=== PATIENT | female | born 1980 | race Two or more races ===

== ENCOUNTER 2019-07-05 13:08 | Emergency (ER) | payer SELFPAY ==
[~2019-07-05] VITALS: Ht 162.6 cm; Wt 65.0 kg
[~2019-07-05 13:08] MED LIST: DOXY100T27 PO; IBUP200T44 PO; OXYC1TAB15 PO; PNV1TABL25 PO; methergine PO
[2019-07-05 13:30] VITALS: BP 133/75
[2019-07-05] MEDS ORDERED: IV NORMAL SALINE 1000ML BAG 1,000 ML IV ONE (13:45)
[2019-07-05 13:50] LABS: BILIRUBIN,URINE NEGATIVE (NEG); CLARITY,URINE CLOUDY; COLOR,URINE YELLOW; NITRITE,URINE NEGATIVE (NEG); PH,URINE 6.5; PROTEIN,URINE NEGATIVE (NEG-TRACE)
[2019-07-05 13:53] LABS: BASO % 0 % (0-3); EOS # 0.1 x10^3/uL (0.0-0.7); EOS % 2 % (0-3); HEMATOCRIT 40.9 % (36.0-47.0); HEMOGLOBIN 13.7 g/dL (12.0-15.5); LYMPH # 1.2 x10^3/uL (1.0-4.8); LYMPH % 17 % (24-48); MEAN CORPUSCULAR HEMOGLOBIN 30 pg (25-35); MEAN CORPUSCULAR HGB CONC 34 g/dL (31-37); MEAN CORPUSCULAR VOLUME 88 fL (79-100); MONO # 0.4 x10^3/uL (0.0-1.1); MONO % 7 % (0-9); NEUT # 5.1 x10^3/uL (1.8-7.7); NEUT % 75 % (31-73); PLATELET COUNT 221 x10^3/uL (140-400); RED BLOOD COUNT 4.67 x10^6/uL (3.50-5.40); RED CELL DISTRIBUTION WIDTH 14.8 % (11.5-14.5); WHITE BLOOD COUNT 6.8 x10^3/uL (4.0-11.0)
--- NOTE | 2019-07-05 13:58 | PHYS DOC ---
Adult General Chief Complaint Chief Complaint: VAGINAL BLEEDING [facility] HPI Patient is a 38 year old female who presents with vaginal bleeding, lower abdominal pain has been ongoing for several days. The patient also states that yesterday she had blood in her urine. She states her last menstrual period was distal fifth, that she is currently 8-9 weeks . The patient is [id number]. She rates her pain as 7/10 in severity. [employer] # [id number] ([place]) Review of Systems Review of Systems Constitutional: Denies fever or chills [] Eyes: Denies change in visual acuity, redness, or eye pain [] HENT: Denies nasal congestion or sore throat [] Respiratory: Denies cough or shortness of breath [] Cardiovascular: No additional information not addressed in HPI [] GI: Reports abdominal pain, denies nausea, vomiting, bloody stools or diarrhea [] : Denies dysuria or hematuria [] Musculoskeletal: Denies back pain or joint pain [] Integument: Denies rash or skin lesions [] Neurologic: Denies headache, focal weakness or sensory changes [] Endocrine: Denies polyuria or polydipsia [] Complete systems were reviewed and found to be within normal limits, except as documented in this note. Current Medications Current Medications Current Medications Medications (Trade) Dose Ordered Sig/Robel Start Time Stop Time Status Last Admin Dose Admin Sodium Chloride 1,000 ml @ 1,000 mls/hr 1X ONCE 07/05/19 13:45 07/05/19 14:44 DC 07/05/19 14:00 1,000 MLS/HR Allergies Allergies Allergies Coded Allergies Type Severity Reaction Last Updated Verified No Known Drug Allergies 06/10/15 No Physical Exam Physical Exam Constitutional: Well developed, well nourished, no acute distress, non-toxic appearance. [] HENT: Normocephalic, atraumatic, bilateral external ears normal, oropharynx moist, no oral exudates, nose normal. [] Eyes: PERRLA, EOMI, conjunctiva normal, no discharge. [] Neck: Normal range of motion, no tenderness, supple, no stridor. [] Cardiovascular:Heart rate regular rhythm, no murmur [] Lungs & Thorax: Bilateral breath sounds clear to auscultation [] Abdomen: Bowel sounds normal, soft, lower abdominal tenderness, no masses, no pulsatile masses. [] Skin: Warm, dry, no erythema, no rash. [] Neurologic: Alert and oriented X 3, normal motor function, normal sensory function, no focal deficits noted. [] Psychologic: Affect normal, judgement normal, mood normal. [] Current Patient Data Vital Signs Vital Signs Date Time Temp Pulse Resp B/P (MAP) Pulse Ox O2 Delivery O2 Flow Rate FiO2 07/05/19 13:30 98.5 97 18 133/75 (94) 97 Room Air 98.5 Lab Values Laboratory Tests Test 07/05/19 13:20 07/05/19 13:25 07/05/19 13:40 07/05/19 15:20 Urine Collection Type Unknown Urine Color Yellow Urine Clarity Cloudy Urine pH 6.5 Urine Specific [place] 1.015 Urine Protein Negative mg/dL (NEG-TRACE) Urine Glucose (UA) Negative mg/dL (NEG) Urine Ketones (Stick) Negative mg/dL (NEG) Urine Blood Large (NEG) Urine Nitrite Negative (NEG) Urine Bilirubin Negative (NEG) Urine Urobilinogen Dipstick 1.0 mg/dL (0.2 mg/dL) Urine Leukocyte Esterase Moderate (NEG) Urine RBC 11-20 /HPF (0-2) Urine WBC 1-4 /HPF (0-4) Urine Squamous Epithelial Cells Many /LPF Urine Bacteria Many /HPF (0-FEW) Urine Mucus Slight /LPF White Blood Count 6.8 x10^3/uL (4.0-11.0) Red Blood Count 4.67 x10^6/uL (3.50-5.40) Hemoglobin 13.7 g/dL (12.0-15.5) Hematocrit 40.9 % (36.0-47.0) Mean Corpuscular Volume 88 fL (79-100) Mean Corpuscular Hemoglobin 30 pg (25-35) Mean Corpuscular Hemoglobin Concent 34 g/dL (31-37) Red Cell Distribution Width 14.8 % (11.5-14.5) H Platelet Count 221 x10^3/uL (140-400) Neutrophils (%) (Auto) 75 % (31-73) H Lymphocytes (%) (Auto) 17 % (24-48) L Monocytes (%) (Auto) 7 % (0-9) Eosinophils (%) (Auto) 2 % (0-3) Basophils (%) (Auto) 0 % (0-3) Neutrophils # (Auto) 5.1 x10^3/uL (1.8-7.7) Lymphocytes # (Auto) 1.2 x10^3/uL (1.0-4.8) Monocytes # (Auto) 0.4 x10^3/uL (0.0-1.1) Eosinophils # (Auto) 0.1 x10^3/uL (0.0-0.7) Basophils # (Auto) 0.0 x10^3/uL (0.0-0.2) Maternal Serum HCG Beta Subunit 9782 mIU/mL (0-5) H POC Urine HCG, Qualitative Hcg positive (Negative) Sodium Level 143 mmol/L (136-145) Potassium Level 3.7 mmol/L (3.5-5.1) Chloride Level 108 mmol/L (98-107) H Carbon Dioxide Level 24 mmol/L (21-32) Anion Gap 11 (6-14) Blood Urea Nitrogen 7 mg/dL (7-20) Creatinine 0.5 mg/dL (0.6-1.0) L Estimated GFR (Cockcroft-Gault) 138.1 BUN/Creatinine Ratio 14 (6-20) Glucose Level 87 mg/dL (70-99) Calcium Level 8.8 mg/dL (8.5-10.1) Magnesium Level 2.0 mg/dL (1.8-2.4) Total Bilirubin 0.3 mg/dL (0.2-1.0) Aspartate Amino Transferase (AST) 19 U/L (15-37) Alanine Aminotransferase (ALT) 29 U/L (14-59) Alkaline Phosphatase 84 U/L (46-116) Total Protein 6.5 g/dL (6.4-8.2) Albumin 3.2 g/dL (3.4-5.0) L Albumin/Globulin Ratio 1.0 (1.0-1.7) Laboratory Tests 07/05/19 13:25 Laboratory Tests 07/05/19 15:20 EKG EKG [] Radiology/Procedures Radiology/Procedures [][facility] [address] [place] [address] IMAGING REPORT Signed PATIENT: AYSHACHARUBOSTEPHANE AACCOUNT: [id number] : 1980 LOCATION: ER AGE: 38 SEX: F EXAM STATUS: REG ER ORD. PHYSICIAN: KERMIT HEAD APRN REASON: vaginal bleeding, abd pain PROCEDURE: OB <14 WKS W/TV Examination: OB <14 WKS W/TV History: Vaginal bleeding, abdominal pain Comparison/Correlation: None Findings: Transabdominal and transvaginal pelvic ultrasound was performed. Transvaginal technique was utilized to better assess the adnexal structures. Uterus measures 12 cm x 7.8 cm x 6.1 cm. Myometrium is unremarkable intrauterine gestational sac is present with mean diameter corresponding to 6 weeks 2 days gestation. Yolk sac is present. [place]-rump length of the pole present is 0.63 cm corresponding to 6 weeks 3 days gestation. Ultrasound MELI is 10/10/2019. No heart rate detected. Subchronic hemorrhage measuring 1.4 cm x 1 cm x 0.8 cm present. Maternal cervical length is 4.6 cm. Right ovary measures 2.4 cm x 1.7 x 1.5 cm. Left ovary measures 2.6 cm x 2.3 cm x 1.3 cm. No suspicious adnexal lesion. Normal ovarian flow is evident with no findings of torsion. Impression: Intrauterine gestation is present but no heart rate is detected. Nonviable gestation suspected considering the crown-rump length. Consider interval follow-up ultrasound for further confirmation. Small subchorionic hemorrhage. Electronically signed by: Iggy Nguyen MD (07/05/2019 3:29 PM) [id number] DICTATED and SIGNED BY: IGGY NGUYEN MD DATE: 07/05/19 1529 Course & Med Decision Making Course & Med Decision Making Pertinent Labs and Imaging studies reviewed. (See chart for details) Will get labs, UA, and ultrasound. Will give supportive care. Labs are unremarkable. UA shows leukocytes. Ultrasound shows a nonviable with no heart beat. Will have follow up with [facility] in [address] on Keflex. Patient is 0+ Dragon Disclaimer Dragon Disclaimer This electronic medical record was generated, in whole or in part, using a voice recognition dictation system. Departure Departure Impression: Primary Impression: Incomplete Disposition: HOME, SELF-CARE Condition: STABLE Referrals: NO PCP (PCP) VIVIEN POWER MD Patient Instructions: Miscarriage Additional Instructions: Thank you for visiting [facility]. We appreciate you trusting us with your care. If any additional problems come up don't hesitate to return to visit us. Please follow up with your primary care provider so they can plan additional care if needed and know about the problem that you had. If symptoms worsen come back to the Emergency Department. Any concerning symptoms that start such as chest pain, shortness of air, weakness or numbness on one side of the body, running high fevers or any other concerning symptoms return to the ER. Please follow up with OB in 2 days to have HCG rechecked. Scripts Ondansetron (ONDANSETRON ODT) 4 Mg Tab.rapdis 1 TAB PO PRN Q6-8HRS PRN for NAUSEA, #20 TAB Prov: KERMIT HEAD APRN 07/05/19 Hydrocodone/Apap 5-325 (NORCO 5-325 TABLET) 1 Each Tablet 1 TAB PO PRN Q6HRS PRN for PAIN for 3 Days, #10 TAB 0 Refills Prov: KERMIT HEAD APRN 07/05/19 KERMIT HEAD APRN Jul 05, 2019 13:58
[2019-07-05 14:08] LABS: BACTERIA,URINE MANY /HPF (0-FEW); SQUAMOUS EPITHELIAL CELL,UR MANY /LPF
--- NOTE | 2019-07-05 15:32 | RAD ---
Examination: OB <14 WKS W/TV History: Vaginal bleeding, abdominal pain Comparison/Correlation: None Findings: Transabdominal and transvaginal pelvic ultrasound was performed. Transvaginal technique was utilized to better assess the adnexal structures. Uterus measures 12 cm x 7.8 cm x 6.1 cm. Myometrium is unremarkable intrauterine gestational sac is present with mean diameter corresponding to 6 weeks 2 days gestation. Yolk sac is present. [place]-rump length of the pole present is 0.63 cm corresponding to 6 weeks 3 days gestation. Ultrasound MELI is 10/10/2019. No heart rate detected. Subchronic hemorrhage measuring 1.4 cm x 1 cm x 0.8 cm present. Maternal cervical length is 4.6 cm. Right ovary measures 2.4 cm x 1.7 x 1.5 cm. Left ovary measures 2.6 cm x 2.3 cm x 1.3 cm. No suspicious adnexal lesion. Normal ovarian flow is evident with no findings of torsion. Impression: Intrauterine gestation is present but no heart rate is detected. Nonviable gestation suspected considering the crown-rump length. Consider interval follow-up ultrasound for further confirmation. Small subchorionic hemorrhage. Electronically signed by: Chadwick Arizmendi MD (07/05/2019 3:29 PM) [id number]
[2019-07-05 16:14] LABS: CALCIUM 8.8 mg/dL (8.5-10.1); CREATININE 0.5 mg/dL (0.6-1.0); GFR 138.1; POTASSIUM 3.7 mmol/L (3.5-5.1)
[2019-07-05 16:20] LABS: ALBUMIN 3.2 g/dL (3.4-5.0); TOTAL BILIRUBIN 0.3 mg/dL (0.2-1.0); TOTAL PROTEIN 6.5 g/dL (6.4-8.2)
[2019-07-05] MEDS: MORPHINE SULFATE 10 MG/ML VIAL. IV STA ×2 (16:41→16:57)
[2019-07-05] MEDS ORDERED: HYDR-3164 PO (16:43)
[2019-07-05] MEDS ORDERED: ONDA4TAB12 PO (16:43)
== END 2019-07-05 17:08 | disposition home or self-care (01) ==
LOC: ER 13:08
DX: O03.4 Incomplete spontaneous abortion without complication (principal); O46.91 Antepartum hemorrhage, unspecified, first trimester; R10.30 Lower abdominal pain, unspecified; Z3A.09 9 weeks gestation of pregnancy
CPT/HCPCS: 36415; 76801; 76817; 80053; 81001; 81025; 83735; 84702; 85025; 86900; 86901; 87086; 99285; J7030; J2270

== ENCOUNTER 2019-07-30 16:34 | Emergency (ER) | payer SELFPAY ==
[~2019-07-30] VITALS: Ht 157.5 cm; Wt 73.0 kg
[~2019-07-30 16:34] MED LIST changes: +HYDR-3164 PO; +ONDA4TAB12 PO
[2019-07-30 16:58] LABS: BILIRUBIN,URINE NEGATIVE (NEG); COLOR,URINE YELLOW; NITRITE,URINE NEGATIVE (NEG); PROTEIN,URINE NEGATIVE (NEG-TRACE)
[2019-07-30] MEDS ORDERED: IV NORMAL SALINE 1000ML BAG 1,000 ML IV ONE (17:15)
[2019-07-30] MEDS ORDERED: MORPHINE SULFATE 4 MG/ML VIAL. IV ONE (17:15)
[2019-07-30] MEDS ORDERED: ONDANSETRON PF 4 MG/2 ML VIAL. IV ONE (17:15)
[2019-07-30 17:17] LABS: CLARITY,URINE HAZY
[2019-07-30 17:19] LABS: BACTERIA,URINE MANY /HPF (0-FEW); SQUAMOUS EPITHELIAL CELL,UR MANY /LPF; WBC,URINE 20-40 /HPF (0-4)
[2019-07-30 17:25] LABS: U PREG PATIENT NEGATIVE (NEG)
[2019-07-30 17:30] LABS: BASO % 1 % (0-3); EOS # 0.2 x10^3/uL (0.0-0.7); EOS % 3 % (0-3); HEMATOCRIT 37.7 % (36.0-47.0); HEMOGLOBIN 12.9 g/dL (12.0-15.5); LYMPH # 1.4 x10^3/uL (1.0-4.8); LYMPH % 24 % (24-48); MEAN CORPUSCULAR HEMOGLOBIN 30 pg (25-35); MEAN CORPUSCULAR HGB CONC 34 g/dL (31-37); MEAN CORPUSCULAR VOLUME 87 fL (79-100); MONO # 0.5 x10^3/uL (0.0-1.1); MONO % 9 % (0-9); NEUT # 3.8 x10^3/uL (1.8-7.7); NEUT % 64 % (31-73); PLATELET COUNT 199 x10^3/uL (140-400); RED BLOOD COUNT 4.36 x10^6/uL (3.50-5.40); RED CELL DISTRIBUTION WIDTH 14.2 % (11.5-14.5)
--- NOTE | 2019-07-30 17:31 | PHYS DOC ---
Past Medical History Past Medical History: No Pertinent History Additional Past Medical Histor: MISCARRIAGE (TIMMY GREENWOOD APRN) Past Surgical History: No Surgical History (TIMMY GREENWOOD APRN) Smoking Status: Never Smoker Alcohol Use: None (TIMMY GREENWOOD APRN) Adult General Chief Complaint Chief Complaint: ABDOMINAL PAIN HPI HPI Patient is a 38 year old female, accompanied by her , who presents to the emergency department with complaints of left-sided abdominal pain for the last week that is increased today. Patient reports that approximately 3 weeks ago she had a miscarriage and was seen here. Patient states after having a D&C she was told that the had found some tumors. Patient states she has not been further evaluated for the tumors that were found. She denies any nausea, vomiting, diarrhea, constipation, bloody stools, irregular vaginal discharge, vaginal bleeding, fever, cough, or shortness of breath. She states that she has noticed blood in her urine, dysuria, and increased urinary frequency. Patient also complains of left sided low back pain. She currently rates her pain a 9 out of 10 on the pain scale, she has been taking Tylenol with no reduction of her pain. She denies any alleviating factors, the pain is worse with palpation of her left abdomen. The [employer] senior account representative line was used to t alk with patient as she is primarily [place] speaking. (TIMMY GREENWOOD APRN) Review of Systems Review of Systems Complete ROS is negative unless otherwise noted in HPI. (TIMMY GREENWOOD APRN) Current Medications Current Medications Current Medications Medications (Trade) Dose Ordered Sig/Robel Start Time Stop Time Status Last Admin Dose Admin Ceftriaxone Sodium (Rocephin) 1 gm 1X ONCE 07/30/19 18:15 07/30/19 18:16 DC 07/30/19 18:29 1 GM Morphine Sulfate (Morphine Sulfate) 4 mg 1X ONCE 07/30/19 17:15 07/30/19 17:16 DC 07/30/19 17:28 4 MG Ondansetron HCl (Zofran) 4 mg 1X ONCE 07/30/19 17:15 07/30/19 17:16 DC 07/30/19 17:28 4 MG Sodium Chloride 1,000 ml @ 1,000 mls/hr 1X ONCE 07/30/19 17:15 07/30/19 18:14 DC 07/30/19 17:27 1,000 MLS/HR (KERMIT ROSA DO) Allergies Allergies Allergies Coded Allergies Type Severity Reaction Last Updated Verified No Known Drug Allergies 06/10/15 No (KERMIT ROSA DO) Physical Exam Physical Exam See Above Constitutional: Well developed, well nourished, no acute distress, non-toxic appearance. [] HENT: Normocephalic, atraumatic, bilateral external ears normal, oropharynx moist, no oral exudates, nose normal. [] Eyes: PERRLA, EOMI, conjunctiva normal, no discharge. [] Neck: Normal range of motion, no stridor. [] Cardiovascular:Heart rate regular rhythm, no murmur [] Lungs & Thorax: Bilateral breath sounds clear to auscultation [] Abdomen: Bowel sounds normal, soft, LUQ and LLQ TTP, no rebound tenderness, no masses, no pulsatile masses. [] Skin: Warm, dry, no erythema, no rash. [] Back: L CVA tenderness. [] Extremities: No cyanosis, ROM intact, no edema. [] Neurologic: Alert and oriented X 3, no focal deficits noted. [] Psychologic: Affect normal, judgement normal, mood normal. [] (TIMMY GREENWOOD APRN) Current Patient Data Vital Signs Vital Signs Date Time Temp Pulse Resp B/P (MAP) Pulse Ox O2 Delivery O2 Flow Rate FiO2 07/30/19 18:18 72 16 147/72 (97) 96 Room Air (ROSAKERMIT RUSSELL DO) Lab Values Laboratory Tests Test 07/30/19 16:40 07/30/19 17:20 Urine Collection Type Unknown Urine Color Yellow Urine Clarity Hazy Urine pH 6.0 (<5.0-8.0) Urine Specific [place] 1.025 (1.000-1.030) Urine Protein Negative mg/dL (NEG-TRACE) Urine Glucose (UA) Negative mg/dL (NEG) Urine Ketones (Stick) Negative mg/dL (NEG) Urine Blood Large (NEG) Urine Nitrite Negative (NEG) Urine Bilirubin Negative (NEG) Urine Urobilinogen Dipstick 1.0 mg/dL (0.2 mg/dL) Urine Leukocyte Esterase Large (NEG) Urine RBC 1-2 /HPF (0-2) Urine WBC 20-40 /HPF (0-4) Urine Squamous Epithelial Cells Many /LPF Urine Bacteria Many /HPF (0-FEW) Urine Mucus Marked /LPF Urine Test Negative (NEG) White Blood Count 6.0 x10^3/uL (4.0-11.0) Red Blood Count 4.36 x10^6/uL (3.50-5.40) Hemoglobin 12.9 g/dL (12.0-15.5) Hematocrit 37.7 % (36.0-47.0) Mean Corpuscular Volume 87 fL (79-100) Mean Corpuscular Hemoglobin 30 pg (25-35) Mean Corpuscular Hemoglobin Concent 34 g/dL (31-37) Red Cell Distribution Width 14.2 % (11.5-14.5) Platelet Count 199 x10^3/uL (140-400) Neutrophils (%) (Auto) 64 % (31-73) Lymphocytes (%) (Auto) 24 % (24-48) Monocytes (%) (Auto) 9 % (0-9) Eosinophils (%) (Auto) 3 % (0-3) Basophils (%) (Auto) 1 % (0-3) Neutrophils # (Auto) 3.8 x10^3/uL (1.8-7.7) Lymphocytes # (Auto) 1.4 x10^3/uL (1.0-4.8) Monocytes # (Auto) 0.5 x10^3/uL (0.0-1.1) Eosinophils # (Auto) 0.2 x10^3/uL (0.0-0.7) Basophils # (Auto) 0.0 x10^3/uL (0.0-0.2) Sodium Level 141 mmol/L (136-145) Potassium Level 3.3 mmol/L (3.5-5.1) L Chloride Level 105 mmol/L (98-107) Carbon Dioxide Level 30 mmol/L (21-32) Anion Gap 6 (6-14) Blood Urea Nitrogen 10 mg/dL (7-20) Creatinine 0.7 mg/dL (0.6-1.0) Estimated GFR (Cockcroft-Gault) 93.6 BUN/Creatinine Ratio 14 (6-20) Glucose Level 98 mg/dL (70-99) Calcium Level 9.3 mg/dL (8.5-10.1) Total Bilirubin 0.4 mg/dL (0.2-1.0) Aspartate Amino Transferase (AST) 29 U/L (15-37) Alanine Aminotransferase (ALT) 40 U/L (14-59) Alkaline Phosphatase 103 U/L (46-116) Total Protein 7.0 g/dL (6.4-8.2) Albumin 3.4 g/dL (3.4-5.0) Albumin/Globulin Ratio 0.9 (1.0-1.7) L Laboratory Tests 07/30/19 17:20 Laboratory Tests 07/30/19 17:20 (KERMIT ROSA DO) Lab Values Laboratory Tests Test 07/30/19 16:40 07/30/19 17:20 Urine Collection Type Unknown Urine Color Yellow Urine Clarity Hazy Urine pH 6.0 (<5.0-8.0) Urine Specific [place] 1.025 (1.000-1.030) Urine Protein Negative mg/dL (NEG-TRACE) Urine Glucose (UA) Negative mg/dL (NEG) Urine Ketones (Stick) Negative mg/dL (NEG) Urine Blood Large (NEG) Urine Nitrite Negative (NEG) Urine Bilirubin Negative (NEG) Urine Urobilinogen Dipstick 1.0 mg/dL (0.2 mg/dL) Urine Leukocyte Esterase Large (NEG) Urine RBC 1-2 /HPF (0-2) Urine WBC 20-40 /HPF (0-4) Urine Squamous Epithelial Cells Many /LPF Urine Bacteria Many /HPF (0-FEW) Urine Mucus Marked /LPF Urine Test Negative (NEG) White Blood Count 6.0 x10^3/uL (4.0-11.0) Red Blood Count 4.36 x10^6/uL (3.50-5.40) Hemoglobin 12.9 g/dL (12.0-15.5) Hematocrit 37.7 % (36.0-47.0) Mean Corpuscular Volume 87 fL (79-100) Mean Corpuscular Hemoglobin 30 pg (25-35) Mean Corpuscular Hemoglobin Concent 34 g/dL (31-37) Red Cell Distribution Width 14.2 % (11.5-14.5) Platelet Count 199 x10^3/uL (140-400) Neutrophils (%) (Auto) 64 % (31-73) Lymphocytes (%) (Auto) 24 % (24-48) Monocytes (%) (Auto) 9 % (0-9) Eosinophils (%) (Auto) 3 % (0-3) Basophils (%) (Auto) 1 % (0-3) Neutrophils # (Auto) 3.8 x10^3/uL (1.8-7.7) Lymphocytes # (Auto) 1.4 x10^3/uL (1.0-4.8) Monocytes # (Auto) 0.5 x10^3/uL (0.0-1.1) Eosinophils # (Auto) 0.2 x10^3/uL (0.0-0.7) Basophils # (Auto) 0.0 x10^3/uL (0.0-0.2) Sodium Level 141 mmol/L (136-145) Potassium Level 3.3 mmol/L (3.5-5.1) L Chloride Level 105 mmol/L (98-107) Carbon Dioxide Level 30 mmol/L (21-32) Anion Gap 6 (6-14) Blood Urea Nitrogen 10 mg/dL (7-20) Creatinine 0.7 mg/dL (0.6-1.0) Estimated GFR (Cockcroft-Gault) 93.6 BUN/Creatinine Ratio 14 (6-20) Glucose Level 98 mg/dL (70-99) Calcium Level 9.3 mg/dL (8.5-10.1) Total Bilirubin 0.4 mg/dL (0.2-1.0) Aspartate Amino Transferase (AST) 29 U/L (15-37) Alanine Aminotransferase (ALT) 40 U/L (14-59) Alkaline Phosphatase 103 U/L (46-116) Total Protein 7.0 g/dL (6.4-8.2) Albumin 3.4 g/dL (3.4-5.0) Albumin/Globulin Ratio 0.9 (1.0-1.7) L Laboratory Tests 07/30/19 17:20 Laboratory Tests 07/30/19 17:20 (TIMMY GREENWOOD APRN) EKG EKG [] (TIMMY GREENWOOD APRN) Radiology/Procedures Radiology/Procedures [] (TIMMY GREENWOOD APRN) Course & Med Decision Making Course & Med Decision Making Pertinent Labs and Imaging studies reviewed. (See chart for details) 38-year-old female presented to the emergency room with complaints of dysuria, hematuria, left-sided low back and left-sided abdominal pain for the last week. CBC was unremarkable, CMP reveals potassium of 3.3, otherwise unremarkable; UA revealed large amount of leuk esterase, 1-2 red blood cells, and 20-40 white blood cells with many bacteria and negative urine . Patient given a gram of IV Rocephin in the emergency department. Supportive care was also given. Prescriptions written for Keflex and Pyridium. Patient to follow-up with her primary care doctor for further evaluation of the abnormal findings with the D&C as planned. Return to the ER if symptoms worsen or fever develops. Patient verbalized an understanding of home care, medications, follow-up, and return to ED instructions and was in agreement with the plan of care. (TIMMY GREENWOOD APRN) Dragon Disclaimer Dragon Disclaimer This electronic medical record was generated, in whole or in part, using a voice recognition dictation system. (TIMMY GREENWOOD APRN) Departure Departure Impression: Primary Impression: UTI (urinary tract infection) Disposition: HOME, SELF-CARE Condition: STABLE Referrals: NO PCP (PCP) Patient Instructions: Urinary Tract Infection, [id number] Additional Instructions: Fill prescription(s) and use as directed. Avoid bladder irritants such as caffeine, carbonation, and spicy foods. Increase clear fluids. Follow up with your primary care doctor if symptoms persist, return to the ER if symptoms w orsen. Scripts Phenazopyridine Hcl (PYRIDIUM) 200 Mg Tablet 1 TAB PO TID for urinary discomfort for 3 Days, #9 TAB 0 Refills Prov: TIMMY GREENWOOD APRN 07/30/19 Cephalexin (CEPHALEXIN) 500 Mg Capsule 1 CAP PO BID for 7 Days, #14 CAP 0 Refills Prov: TIMMY GREENWOOD APRN 07/30/19 Attending Signature Attending Signature I have reviewed the PA/BEHAVIORAL MODIFICATION ASSISTANT's note and plan of care. I was available for consultation as needed during the patient's visit in the emergency department. I agree with the clinical impression, plan, and disposition. (KERMIT ROSA DO) Problem Qualifiers Primary Impression: UTI (urinary tract infection) Urinary tract infection type: site unspecified Hematuria presence: without hematuria Qualified Codes: N39.0 - Urinary tract infection, site not specified TIMMY GREENWOOD APRN Jul 30, 2019 17:31 KERMIT ROSA DO Jul 30, 2019 20:44
[2019-07-30 17:57] LABS: CALCIUM 9.3 mg/dL (8.5-10.1); CREATININE 0.7 mg/dL (0.6-1.0); GFR 93.6; POTASSIUM 3.3 mmol/L (3.5-5.1)
[2019-07-30 18:02] LABS: ALBUMIN 3.4 g/dL (3.4-5.0); ALBUMIN/GLOBULIN RATIO 0.9 (1.0-1.7); TOTAL BILIRUBIN 0.4 mg/dL (0.2-1.0)
[2019-07-30] MEDS ORDERED: cefTRIAXone IV Push 1 GM VIAL. IVP ONE (18:15)
[2019-07-30 18:18] VITALS: BP 147/72
[2019-07-30] MEDS ORDERED: CEPH500C PO (18:38)
[2019-07-30] MEDS ORDERED: PHEN-318 PO (18:38)
== END 2019-07-30 18:45 | disposition home or self-care (01) ==
LOC: ER 16:34
DX: N39.0 Urinary tract infection, site not specified (principal); M54.5 Low back pain; R10.32 Left lower quadrant pain; R10.12 Left upper quadrant pain; Z98.890 Other specified postprocedural states
CPT/HCPCS: 36415; 80053; 81001; 81025; 85025; 87086; 96374; 96375; 99284; J0696; J2270; J2405; J7030

== ENCOUNTER 2019-11-13 18:44 | Emergency (ER) | payer SELFPAY ==
[~2019-11-13] VITALS: Ht 172.7 cm; Wt 78.0 kg
[~2019-11-13 18:44] MED LIST changes: +CEPH500C PO; +PHEN-318 PO
[2019-11-13] MEDS ORDERED: IV NORMAL SALINE 1000ML BAG 1,000 ML IV SCH (19:30)
--- NOTE | 2019-11-13 19:34 | PHYS DOC ---
Past Medical History Past Medical History: No Pertinent History Additional Past Medical Histor: MISCARRIAGE Past Surgical History: No Surgical History Smoking Status: Never Smoker Alcohol Use: None General Adult EDM: Chief Complaint: COUGH HPI: HPI: Patient is a 39 year old female who presents with complaint of cough, fever and shortness of breath for the last couple of days. Patient is currently and he is a G6, who believes her self to be approximately 8 weeks . Her LMP was October 02. Patient states that shortness of breath is worsened with exertion. She denies any chest pain. She denies any abdominal pain, vomiting or diarrhea. Patient denies any exposure to COVID. [] Review of Systems: Review of Systems: Constitutional: Positive fever and chills. [] Respiratory: Positive cough and shortness of breath. [] Cardiovascular: Denies chest pain or edema. [] Integument: Denies rash. [] Neurologic: Positive headache without focal weakness or sensory changes. [] A full 10 point review of systems has been reviewed and is otherwise negative. Heart Score: Risk Factors: Risk Factors: DM, Current or recent (<one month) smoker, HTN, HLP, family history of CAD, obesity. Risk Scores: Score 0 - 3: 2.5% MACE over next 6 weeks - Discharge Home Score 4 - 6: 20.3% MACE over next 6 weeks - Admit for Clinical Observation Score 7 - 10: 72.7% MACE over next 6 weeks - Early Invasive Strategies Allergies: Allergies: Allergies Coded Allergies Type Severity Reaction Last Updated Verified No Known Drug Allergies 06/10/15 No Physical Exam: PE: Constitutional: Well developed, well nourished, no acute distress, non-toxic ap pearance. [] HENT: Normocephalic, atraumatic, bilateral external ears normal, oropharynx moist, no oral exudates, nose normal. [] Eyes: PERRLA, EOMI, conjunctiva normal, no discharge. [] Neck: Normal range of motion, no tenderness, supple, no stridor. [] Cardiovascular: Tachycardic rate with regular rhythm [] Lungs & Thorax: Bilateral breath sounds clear to auscultation [] Abdomen: Bowel sounds normal, soft, no tenderness. [] Skin: Warm, dry, no erythema, no rash. [] Extremities: No tenderness, no cyanosis, no clubbing, ROM intact, no edema. [] Neurologic: Alert and oriented X 3, no focal deficits noted. [] EKG: EKG: [] Radiology/Procedures: Radiology/Procedures: [] Impression: PROCEDURE: PORTABLE CHEST 1V PORTABLE CHEST 1V 11/13/2019 7:30 PM INDICATION: Fever, cough and shortness breath COMPARISON: None available TECHNIQUE: Portable frontal view of the chest is provided. FINDINGS: The cardiomediastinal silhouette is within normal limits. Lungs are clear. There are no significant pleural effusions. There is no pulmonary vascular congestion. No pneumothorax. No suspicious osseous abnormality. IMPRESSION: There is no acute cardiopulmonary process. Electronically signed by: Malena Lozano MD (11/13/2019 8:16 PM) [facility] [place] Course & Med Decision Making: Course & Med Decision Making Pertinent Labs and Imaging studies reviewed. (See chart for details) [] Dragon Disclaimer: Dragon Disclaimer: This electronic medical record was generated, in whole or in part, using a voice recognition dictation system. Departure Departure Impression: Primary Impression: Upper respiratory infection Qualified Codes: J06.9 - Acute upper respiratory infection, unspecified Additional Impressions: UTI (urinary tract infection) Qualified Codes: N39.0 - Urinary tract infection, site not specified Person under investigation for COVID-19 Disposition: 01 HOME, SELF-CARE Condition: STABLE Referrals: NO PCP (PCP) Patient Instructions: Upper Respiratory Infection, Adult, Urinary Tract Infection Additional Instructions: Definicin Se le realiz la prueba de deteccin del COVID-19 o se le diagnostic dicha enfermedad. Es kailey infeccin ocasionada por un nuevo tipo de coronavirus. En la mayora de los casos, el COVID-19 provoca sntomas similares a los del resfriado. En algunas personas, puede ocasionar sntomas ms graves, chris problemas respiratorios. No existe un tratamiento para el virus COVID-19. El cuerpo elimina la infeccin con el tiempo. El cuidado personal ayuda a aliviar el malestar. Pasos que debe seguir 1. Cuidados personales Descanse cuando sea necesario. Los hbitos saludables pueden ayudarlo a sentirse mejor. Algunas medidas para lograr cambios incluyen lo siguiente: - Elija alimentos saludables, chris frutas y verduras. [place] abundante cantidad de agua kia todo el da. - Duerma juana por la noche. - Si fuma, intente no hacerlo. Adams ayudar a mejorar la respiracin. - Evite el alcohol. 2. Mantenga sanos a los dems El virus puede contagiarse a otras personas. Cada vez que estornuda o tose, se liberan gotitas. Las gotitas pueden entrar en la boca, la nariz o los ojos de las personas que se encuentran cerca de usted y ocasionar la infeccin. Para reducir las prob abilidades de contagiar el virus COVID-19 a otros, tenga en cuenta lo siguiente: - Qudese en casa el tiempo que el mdico se lo indique. Es posible que deba quedarse en casa hasta que la enfermedad desaparezca. Salga nicamente para recibir atencin mdica o en jorge de urgencia. - Evite las reas pblicas, los eventos o el transporte pblico. No reanude las actividades laborales o escolares hasta que el mdico lo autorice. - Llame previamente si necesita asistir a un centro mdico. Avise que es pos ible que haya contrado COVID-19. Adams ayudar a que le indiquen adonde debe dirigirse. Tambin pueden pedirle que use kailey mscara facial cuando vaya al consultorio. Si llama a los servicios de asistencia mdica de urgencias, avseles que es posible que haya contrado COVID-19. Mientras est en casa: - Evite el contacto directo con otras personas. Mantngase a kailey distancia aproximada de 2 metros. Si es posible, pasen la mayor parte del tiempo en barney separadas. - Use kailey mscara facial si estar en contacto directo con otras personas, por ejemplo, si compartir kailey habitacin o un vehculo. - Pida a alguien que limpie las superficies comunes de la casa. Limpie picaportes, mesadas y lavamanos con limpiadores domsticos todos los crow. - Al toser o estornudar, cbrase con un pauelo de papel. Despus de usarlo, deschelo de inmediato. Si no tiene un pauelo de papel, tosa o estornude en el pliegue del codo. - Lvese las rima con frecuencia. Lvese las rima despus de estornudar o toser. Lvese con agua y jabn kia, al menos, 20 segundos. Si no dispone de agua y jabn, use un limpiador de rima a base de alcohol. - No cocine para otros. Evite compartir objetos personales, chris tenedores, cucharas o cepillos de dientes. - Mientras est enfermo, evite el contacto directo con las mascotas. No hay indicios de si el virus se transmite a las mascotas. Esta es kailey medida de seguridad que debe tenerse en cuenta hasta que se sepa ms acerca de deng virus. El aislamiento puede ser frustrante. La interaccin social puede ayudar. Mantngase en contacto con amigos y familiares por telfono u otros medios tecnolgicos. Puede interactuar con otras personas en el hogar, lawrence mantenga kailey distancia cisneros de aproximadamente 2 metros. Seguimiento Las pruebas para confirmar la presencia del COVID-19 pueden demorar algunos crow. Es posible que deba seguir los pasos mencionados anteriormente hasta que estn los resultados de las pruebas. Lo llamarn del consultorio mdico para saber si britt habido algn cambio en boyce alexander. Tambin le avisarn cuando pueda volver a estar cerca de otras personas. Problemas a los que debe estar atento Comunquese con el mdico si no se recupera segn lo previsto o si tiene problemas chris los siguientes: - Dificultad para respirar - Dolor de pecho - Empeoramiento de los sntomas Si steffanie que tiene kailey urgencia, llame a los servicios de asistencia mdica de urgencias de inmediato. As taken from [facility] ([place], [place]) Cefdinir (CEFDINIR) 300 Mg Capsule 2 CAP PO DAILY, #20 CAP Prov: MENDY BRAVO Jr. DO 11/13/19 Justicifation of Admission Dx: Justifications for Admission: Justification of Admission Dx: Comment: (Not applicable) MENDY BRAVO Jr. DO Nov 13, 2019 19:34
[2019-11-13] MEDS ORDERED: ACETAMINOPHEN 500 MG TABLET PO ONE (19:45)
[2019-11-13 19:56] LABS: BASO % 0 % (0-3); EOS % 0 % (0-3); HEMATOCRIT 37.5 % (36.0-47.0); LYMPH # 0.7 x10^3/uL (1.0-4.8); LYMPH % 17 % (24-48); MEAN CORPUSCULAR HEMOGLOBIN 30 pg (25-35); MEAN CORPUSCULAR HGB CONC 35 g/dL (31-37); MEAN CORPUSCULAR VOLUME 87 fL (79-100); MONO # 0.3 x10^3/uL (0.0-1.1); MONO % 8 % (0-9); NEUT % 74 % (31-73); PLATELET COUNT 159 x10^3/uL (140-400); RED BLOOD COUNT 4.31 x10^6/uL (3.50-5.40); RED CELL DISTRIBUTION WIDTH 14.4 % (11.5-14.5); WHITE BLOOD COUNT 4.1 x10^3/uL (4.0-11.0)
[2019-11-13 20:13] LABS: CALCIUM 7.8 mg/dL (8.5-10.1); CREATININE 0.8 mg/dL (0.6-1.0); GFR 79.9; POTASSIUM 3.5 mmol/L (3.5-5.1)
[2019-11-13 20:14] LABS: INFLUENZA A PATIENT NEGATIVE (NEGATIVE); INFLUENZA B PATIENT NEGATIVE (NEGATIVE)
[2019-11-13 20:18] LABS: BILIRUBIN,URINE NEGATIVE (NEG); CLARITY,URINE CLEAR; COLOR,URINE YELLOW; NITRITE,URINE NEGATIVE (NEG); PH,URINE 6.5 (<5.0-8.0); PROTEIN,URINE NEGATIVE (NEG-TRACE)
--- NOTE | 2019-11-13 20:19 | RAD ---
PORTABLE CHEST 1V 11/13/2019 7:30 PM INDICATION: Fever, cough and shortness breath COMPARISON: None available TECHNIQUE: Portable frontal view of the chest is provided. FINDINGS: The cardiomediastinal silhouette is within normal limits. Lungs are clear. There are no significant pleural effusions. There is no pulmonary vascular congestion. No pneumothorax. No suspicious osseous abnormality. IMPRESSION: There is no acute cardiopulmonary process. Electronically signed by: Malena Lozano MD (11/13/2019 8:16 PM) [facility]
[2019-11-13 20:23] LABS: ALBUMIN 2.8 g/dL (3.4-5.0); ALBUMIN/GLOBULIN RATIO 0.8 (1.0-1.7); TOTAL BILIRUBIN 0.2 mg/dL (0.2-1.0); TOTAL PROTEIN 6.3 g/dL (6.4-8.2)
[2019-11-13 20:23] LABS: RBC,URINE 0 /HPF (0-2); SQUAMOUS EPITHELIAL CELL,UR MOD /LPF
[2019-11-13 20:24] LABS: BACTERIA,URINE FEW /HPF (0-FEW)
[2019-11-13] MEDS ORDERED: cefTRIAXone IV Push 1 GM VIAL. IVP ONE (22:00)
[2019-11-13 22:43] VITALS: BP 111/60
[2019-11-13] MEDS ORDERED: CEFD300C PO (22:53)
--- NOTE | 2019-11-15 13:14 | NUR ---
IP: Called patient concerning the + results of her COVID test. Patient requested I give the results to her son. Both verbalized understanding and I answered all question. Informed them the health department would be in contact.
== END 2019-11-13 23:00 | disposition home or self-care (01) ==
LOC: ER 18:44
DX: O98.511 Other viral diseases complicating pregnancy, first trimester (principal); U07.1 COVID-19; O99.511 Diseases of the respiratory system complicating pregnancy, first trimester; J06.9 Acute upper respiratory infection, unspecified; O23.41 Unspecified infection of urinary tract in pregnancy, first trimester; Z3A.08 8 weeks gestation of pregnancy
CPT/HCPCS: 36415; 71045; 80053; 81001; 83605; 84702; 85025; 85379; 87040; 87070; 87086; 87804; 87880; 96374; 99285; C9803; J0696; J7030; U0003

== ENCOUNTER 2019-12-24 15:25 | Emergency (ER) | payer SELFPAY ==
[~2019-12-24] VITALS: Ht 165.1 cm; Wt 78.6 kg
[~2019-12-24 15:25] MED LIST changes: +CEFD300C PO
[2019-12-24 16:40] LABS: BILIRUBIN,URINE NEGATIVE (NEG); CLARITY,URINE CLEAR; COLOR,URINE YELLOW; NITRITE,URINE NEGATIVE (NEG); PH,URINE 6.5 (<5.0-8.0); PROTEIN,URINE NEGATIVE (NEG-TRACE)
[2019-12-24 16:47] LABS: BACTERIA,URINE FEW /HPF (0-FEW); RBC,URINE 0 /HPF (0-2); SQUAMOUS EPITHELIAL CELL,UR FEW /LPF; WBC,URINE 0 /HPF (0-4)
--- NOTE | 2019-12-24 16:58 | PHYS DOC ---
Past Medical History Past Medical History: No Pertinent History Additional Past Medical Histor: MISCARRIAGE Past Surgical History: Other Additional Past Surgical Histo: D&C Smoking Status: Never Smoker Alcohol Use: None General Adult EDM: Chief Complaint: OTHER COMPLAINTS HPI: HPI: The history was obtained from the patient. Patient is a 39-year-old with no reported PMH who presents with a chief complaint of demise. Patient was transferred from [facility] for concern of nonviable . Patient estimates she is approximately 16 weeks . She has not had any care to date. She does note a history of prior abortions. She denies any vaginal bleeding or clot passage. She notes very mild suprapubic abdominal cramping. She denies any syncope. She denies nausea or vomiting. She states she was [facility] for [facility] evaluation for potential D&C procedure. She denies any chest pain or shortness of breath. She denies any polyuria, dysuria, or hematuria. Denies any vaginal discharge. No other complaints. Review of Systems: Review of Systems: Constitutional: Denies fever or chills. [] Eyes: Denies change in visual acuity. [] HENT: Denies nasal congestion or sore throat. [] Respiratory: Denies cough or shortness of breath. [] Cardiovascular: Denies chest pain or edema. [] GI: Denies abdominal pain, nausea, vomiting, bloody stools or diarrhea. [] : Denies dysuria. [] Musculoskeletal: Denies back pain or joint pain. [] Integument: Denies rash. [] Neurologic: Denies headache, focal weakness or sensory changes. [] Endocrine: Denies polyuria or polydipsia. [] Lymphatic: Denies swollen glands. [] Psychiatric: Denies depression or anxiety. [] Heart Score: Risk Factors: Risk Factors: DM, Current or recent (<one month) smoker, HTN, HLP, family history of CAD, obesity. Risk Scores: Score 0 - 3: 2.5% MACE over next 6 weeks - Discharge Home Score 4 - 6: 20.3% MACE over next 6 weeks - Admit for Clinical Observation Score 7 - 10: 72.7% MACE over next 6 weeks - Early Invasive Strategies Allergies: Allergies: Allergies Coded Allergies Type Severity Reaction Last Updated Verified No Known Drug Allergies 06/10/15 No Physical Exam: PE: Constitutional: Well developed, well nourished, no acute distress, non-toxic appearance. [] HENT: Normocephalic, atraumatic, bilateral external ears normal, oropharynx moist, no oral exudates, nose normal. [] Eyes: PERRLA, EOMI, conjunctiva normal, no discharge. [] Neck: Normal range of motion, no tenderness, supple, no stridor. [] Cardiovascular:Heart rate regular rhythm, no murmur [] Lungs & Thorax: Bilateral breath sounds clear to auscultation [] Abdomen: Bowel sounds normal, soft, no tenderness, no masses, no pulsatile masses. [] : Pelvic exam chaperoned by KANDY Norman. Pelvic exam with white vaginal discharge. thin in nature. Negative cervical motion tenderness. Skin: Warm, dry, no erythema, no rash. [] Back: No tenderness, no CVA tenderness. [] Extremities: No tenderness, no cyanosis, no clubbing, ROM intact, no edema. [] Neurologic: Alert and oriented X 3, normal motor function, normal sensory function, no focal deficits noted. [] Psychologic: Affect normal, judgement normal, mood normal. [] Current Patient Data: Labs: Laboratory Tests Test 12/24/19 16:15 12/24/19 17:25 12/24/19 17:45 Urine Collection Type Unknown Urine Color Yellow Urine Clarity Clear Urine pH 6.5 Urine Specific [place] 1.025 Urine Protein Negative mg/dL Urine Glucose (UA) Negative mg/dL Urine Ketones (Stick) Negative mg/dL Urine Blood Negative Urine Nitrite Negative Urine Bilirubin Negative Urine Urobilinogen Dipstick 1.0 mg/dL Urine Leukocyte Esterase Small Urine RBC 0 /HPF Urine WBC 0 /HPF Urine Squamous Epithelial Cells Few /LPF Urine Bacteria Few /HPF Urine Mucus Mod /LPF White Blood Count 5.9 x10^3/uL Red Blood Count 4.04 x10^6/uL Hemoglobin 12.3 g/dL Hematocrit 35.8 % Mean Corpuscular Volume 89 fL Mean Corpuscular Hemoglobin 30 pg Mean Corpuscular Hemoglobin Concent 34 g/dL Red Cell Distribution Width 14.6 % Platelet Count 199 x10^3/uL Neutrophils (%) (Auto) 69 % Lymphocytes (%) (Auto) 22 % Monocytes (%) (Auto) 7 % Eosinophils (%) (Auto) 2 % Basophils (%) (Auto) 0 % Neutrophils # (Auto) 4.1 x10^3/uL Lymphocytes # (Auto) 1.3 x10^3/uL Monocytes # (Auto) 0.4 x10^3/uL Eosinophils # (Auto) 0.1 x10^3/uL Basophils # (Auto) 0.0 x10^3/uL Sodium Level 139 mmol/L Potassium Level 3.2 mmol/L Chloride Level 104 mmol/L Carbon Dioxide Level 25 mmol/L Anion Gap 10 Blood Urea Nitrogen 8 mg/dL Creatinine 0.6 mg/dL Estimated GFR (Cockcroft-Gault) 111.3 Glucose Level 131 mg/dL Calcium Level 9.5 mg/dL Maternal Serum HCG Beta Subunit 438 mIU/mL Laboratory Tests Test 12/24/19 16:15 Urine Collection Type Unknown Urine Color Yellow Urine Clarity Clear Urine pH 6.5 (<5.0-8.0) Urine Specific [place] 1.025 (1.000-1.030) Urine Protein Negative mg/dL (NEG-TRACE) Urine Glucose (UA) Negative mg/dL (NEG) Urine Ketones (Stick) Negative mg/dL (NEG) Urine Blood Negative (NEG) Urine Nitrite Negative (NEG) Urine Bilirubin Negative (NEG) Urine Urobilinogen Dipstick 1.0 mg/dL (0.2 mg/dL) Urine Leukocyte Esterase Small (NEG) Urine RBC 0 /HPF (0-2) Urine WBC 0 /HPF (0-4) Urine Squamous Epithelial Cells Few /LPF Urine Bacteria Few /HPF (0-FEW) Urine Mucus Mod /LPF EKG: EKG: [] Radiology/Procedures: Radiology/Procedures: [][facility] [address] [place] [address] IMAGING REPORT Signed PATIENT: STEPHANE LOAIZA AACCOUNT: [id number] : 1980 LOCATION: ER AGE: 39 SEX: F EXAM STATUS: REG ER ORD. PHYSICIAN: LIZ NOYOLA DO REASON: eval for IUP and demise PROCEDURE: OB < 14 WKS OB < 14 WKS History: Reason: eval for IUP and demise / Spl. Instructions: / History: Comparison: None. Technique: Grayscale and color Doppler imaging of the pelvis was performed using transabdominal technique. Findings: The uterus measures 15 x 10 x 9 cm. Cervical length 4.3 cm. Intrauterine irregular gestational sac with crown-rump length 5.2 cm. Estimated gestational age by ultrasound 11 weeks 6 days. No heart rate detected. Bilateral ovaries not well seen due to positioning and overlying bowel gas. No adnexal masses are seen. IMPRESSION: 1. Intrauterine gestation 11 weeks 6 days. No heart rate detected. Findings concerning for failed early . Electronically signed by: Antwon Lamar DO (12/24/2019 5:07 PM) [id number] DICTATED and SIGNED BY: ANTWON LAMAR DO DATE: 12/24/191706 Course & Med Decision Making: Course & Med Decision Making Pertinent Labs and Imaging studies reviewed. (See chart for details) Patient is [id number] who presents as transfer from outpatient clinic for concern of intrauterine demise. Bedside ultrasound did reveal intrauterine gestation approximate level weeks 6 days old without heart t ones. Pelvic exam was performed and showed no signs of active bleeding, clot passage, or presenting parts. White vaginal discharge was appreciated. Patient's abdominal exam is benign with very minimal reproducible tenderness. I did speak with our on-call MANA[employer] physician Dr. Lamar. Based on the patient's normal vital signs and benign clinical appearance he felt she was appropriate for outpatient management. I do concur with this. Patient was instructed to call their office tomorrow morning for follow-up in the next 1 to 2 days. Remainder of laboratory analysis is been unremarkable. Type and screen deferred as patient reports no vaginal bleeding. Patient's urine will be treated with antibiotics given she is asymptomatic. Patient is agreeable to this plan. Return cautions discussed and understood. She will be discharged home with metronidazole for possible bacterial vaginosis infection. Stable for discharge home. Dragon Disclaimer: Dragon Disclaimer: This electronic medical record was generated, in whole or in part, using a voice recognition dictation system. Departure Departure Disposition: 01 HOME, SELF-CARE Condition: GOOD Referrals: UNKNOWN PCP NAME (PCP) KERMIT LAMAR MD Patient Instructions: Incomplete Miscarriage Additional Instructions: Please call Dr. Lamar's office tomorrow morning to establish an appointment in the next 1 to 2 days. Scripts Ibuprofen (IBUPROFEN) 600 Mg Tablet 600 MG PO PRN Q6HRS PRN for PAIN, #20 TAB take with food or milk Prov: LIZ NOYOLA DO 12/24/19 Metronidazole (METRONIDAZOLE) 500 Mg Tablet 1 TAB PO BID for 7 Days, #14 TAB 0 Refills Prov: LIZ NOYOLA DO 12/24/19 Justicifation of Admission Dx: Justifications for Admission: Justification of Admission Dx: N/A LIZ NOYOLA DO Dec 24, 2019 16:58
--- NOTE | 2019-12-24 17:10 | RAD ---
OB < 14 WKS History: Reason: eval for IUP and demise / Spl. Instructions: / History: Comparison: None. Technique: Grayscale and color Doppler imaging of the pelvis was performed using transabdominal technique. Findings: The uterus measures 15 x 10 x 9 cm. Cervical length 4.3 cm. Intrauterine irregular gestational sac with crown-rump length 5.2 cm. Estimated gestational age by ultrasound 11 weeks 6 days. No heart rate detected. Bilateral ovaries not well seen due to positioning and overlying bowel gas. No adnexal masses are seen. IMPRESSION: 1. Intrauterine gestation 11 weeks 6 days. No heart rate detected. Findings concerning for failed early . Electronically signed by: Antwon Lamar DO (12/24/2019 5:07 PM) [id number]
[2019-12-24 17:48] LABS: BASO % 0 % (0-3); EOS # 0.1 x10^3/uL (0.0-0.7); EOS % 2 % (0-3); HEMATOCRIT 35.8 % (36.0-47.0); HEMOGLOBIN 12.3 g/dL (12.0-15.5); LYMPH # 1.3 x10^3/uL (1.0-4.8); LYMPH % 22 % (24-48); MEAN CORPUSCULAR HEMOGLOBIN 30 pg (25-35); MEAN CORPUSCULAR HGB CONC 34 g/dL (31-37); MEAN CORPUSCULAR VOLUME 89 fL (79-100); MONO # 0.4 x10^3/uL (0.0-1.1); MONO % 7 % (0-9); NEUT # 4.1 x10^3/uL (1.8-7.7); NEUT % 69 % (31-73); PLATELET COUNT 199 x10^3/uL (140-400); RED BLOOD COUNT 4.04 x10^6/uL (3.50-5.40); RED CELL DISTRIBUTION WIDTH 14.6 % (11.5-14.5); WHITE BLOOD COUNT 5.9 x10^3/uL (4.0-11.0)
[2019-12-24 18:00] LABS: CALCIUM 9.5 mg/dL (8.5-10.1); CREATININE 0.6 mg/dL (0.6-1.0); GFR 111.3; POTASSIUM 3.2 mmol/L (3.5-5.1)
[2019-12-24] MEDS ORDERED: IBUP-1007 PO (18:16)
[2019-12-24] MEDS ORDERED: METR-34 PO (18:16)
[2019-12-24 18:30] VITALS: BP 155/71
[2019-12-25 20:09] LABS: GC PROBE Negative (Negative)
== END 2019-12-24 18:45 | disposition home or self-care (01) ==
LOC: ER 15:25
DX: O36.4XX0 Maternal care for intrauterine death, not applicable or unspecified (principal); R10.30 Lower abdominal pain, unspecified; Z98.890 Other specified postprocedural states; Z3A.16 16 weeks gestation of pregnancy
CPT/HCPCS: 36415; 76801; 80048; 81001; 84702; 85025; 86850; 86900; 86901; 87086; 87491; 87591; 99284; Q0111